=== PATIENT | female | born 1965 | race Caucasian/White ===

== ENCOUNTER 2021-08-31 10:47 | Emergency (ER) | payer OTHER, SELFPAY ==
[2021-08-31 11:07] VITALS: BP 138/88; PULSE 90; RESP 18; TEMP 37.2; O2SAT 97
--- NOTE | 2021-08-31 11:27 | ED.URI ---
HPI - URI/Sore Throat General Chief Complaint: Upper Respiratory Infection Stated Complaint: congestion,sorethroat,watery eyes,headache Time Seen by Provider: 08/31/21 11:18 Source: patient, family and RN notes reviewed Mode of arrival: ambulatory Limitations: no limitations History of Present Illness HPI Narrative: Jodie is a 56-year-old female patient who ambulated into the [facility] with complaint of left-sided facial pain. Patient states the left-sided pain started on and has progressed to both sides of her sinuses. Patient states she is sneezing nonstop. And has sinus congestion. She also states that she has a lot of postnasal drainage. Patient has been taking DayQuil and NyQuil without relief. Related Data Home Medications Medication Instructions Recorded Confirmed lisinopril 10 mg PO DAILY 08/31/21 08/31/21 mirabegron [Myrbetriq] 50 mg PO DAILY 08/31/21 08/31/21 rosuvastatin 10 mg PO DAILY 08/31/21 08/31/21 Allergies Allergy/AdvReac Type Severity Reaction Status Date / Time ciprofloxacin [From Cipro] Allergy Hives Verified 08/31/21 11:16 Sulfa (Sulfonamide Allergy Swelling Verified 08/31/21 11:16 Antibiotics) of Lip/Tongue/Throat Review of Systems Review of Systems: CONSTITUTIONAL: Denies body aches, fever, chills, or sweats. EYES: Denies visual changes, redness, or discharge. ENT: + rhinorrhea,+ congestion, denies sore throat, + otalgia. CARDIOVASCULAR: Denies chest pain, palpitations, or edema. RESPIRATORY: Denies cough or dyspnea. GASTROINTESTINAL: Denies abdominal pain, nausea, vomiting, or diarrhea. GENITOURINARY: Denies dysuria or hematuria. SKIN: Denies rash, itching, or wounds. MUSCULOSKELETAL: Denies back pain, joint pain, or myalgia. NEUROLOGIC: Denies headache, numbness, tingling, or weakness. PSYCH: Denies depression or anxiety. All systems reviewed & are unremarkable except as noted in HPI and below PMFSH Comments At time of signature, I have reviewed and agree with nursing past medical, surgical, social and family history unless otherwise noted. Please see nursing chart for further information. There is no relevant family history pertinent to the presenting complaint Exam Narrative: GENERAL: Well-appearing, well-nourished, and in no acute distress. HEAD: Normocephalic, atraumatic. EYES: EOMI. No redness or drainage. Conjunctivae normal. ENT: Mucous membranes pink and moist. Nasal membranes erythematous with moderate amount of clear rhinorrhea. Bilateral tympanic membranes are dull with moderate amount of fluid no erythema. Posterior pharynx is erythemic with minimal edema and moderate amount of postnasal drainage. Uvula midline. NECK: Normal AROM. Supple. Positive anterior cervical lymphadenopathy. CHEST: No respiratory distress. Clear to auscultation. MUSCULOSKELETAL: No bony tenderness. EXTREMITIES: Normal range of motion. No edema. SKIN: Warm, dry, no rash. Capillary refill normal. Normal skin turgor. NEURO: No focal deficits. Alert and oriented x3. Gait steady. PSYCH: Normal affect. No signs of depression or anxiety. Course Vital Signs Vital signs: Vital Signs Temperature 37.2 C 08/31/21 11:07 Pulse Rate 90 08/31/21 11:07 Respiratory Rate 18 08/31/21 11:07 Blood Pressure 138/88 08/31/21 11:07 Pulse Oximetry 97 08/31/21 11:07 Temperature 37.2 C 08/31/21 11:07 Pulse Rate 90 08/31/21 11:07 Respiratory Rate 18 08/31/21 11:07 Blood Pressure 138/88 08/31/21 11:07 Pulse Oximetry 97 08/31/21 11:07 Reviewed. Pt has been instructed to follow up with her PCP regarding her elevated blood pressure today. MDM - URI/Sore Throat Differential Diagnosis Differential diagnosis: Likely upper respiratory infection, otitis media, viral infection and pharyngitis Medical Records Attestation: I reviewed the patient's medical records. Critical Care Time Critical Care Time Critical Care Time: No Discharge Plan Discharge
== END 2021-08-31 11:37 | disposition home or self-care (01) ==
PROVIDERS: Emergency Provider Nurse Practitioner Family; PCP Physician Assistant
DX: J06.9 Acute upper respiratory infection, unspecified (principal)
CPT/HCPCS: 99203; G0463

== ENCOUNTER → 2022-08-19 15:49 | Outpatient (CLI) | payer OTHER, SELFPAY ==
--- NOTE | ~2022-08-19 | MR_ITS ---
EXAMINATION: MR lumbar spine wo con DATE: 08/19/2022 17:16 INDICATION: Chronic bilateral low back pain. Bilateral sciatica. TECHNIQUE: Magnetic resonance imaging (MRI) of the lumbar spine was performed without intravenous con trast. Sequences included sagittal T2-weighted FSE, sagittal T2-weighted FS FSE, sagittal T1-weighted FSE, and axial T2-weighted FSE. COMPARISON: None FINDINGS: There is 5 degrees levocurvature of lumbar spine. Vertebral body heights are normal. Interv ertebral disc heights are normal. The distal spinal cord signal intensity is normal. The conus medull levi is at L1. There are cysts in the kidneys measuring up to 12 mm on the left. The following disc l evels are specifically discussed: L1-L2: The disc is bulging. There is mild bilateral facet joint osteoarthritis. There is no neural fo raminal stenosis. There is mild central canal stenosis. L2-L3: The disc is bulging. There is mild bilateral facet joint osteoarthritis. There is no neural fo raminal stenosis. There is mild central canal stenosis. L3-L4: The disc is bulging. There is mild bilateral facet joint osteoarthritis. There is mild bilater al neural foraminal stenosis. There is mild central canal stenosis. L4-L5: The disc is bulging and has an annular fissure. There is severe right and mild left facet join t osteoarthritis. There is mild bilateral neural foraminal stenosis. There is mild central canal sten osis. L5-S1: The disc is bulging and has an annular fissure. There is mild bilateral facet joint osteoarthr itis. There is mild bilateral neural foraminal stenosis. There is mild central canal stenosis. IMPRESSION: 1. Mild lumbar spondylosis. Reviewed, dictated and finalized at location A. [employer] IMPRESSION: 1. Mild lumbar spondylosis.
== END ==
PROVIDERS: PCP Physician Assistant; Visit Provider Physician Assistant
DX: M54.42 Lumbago with sciatica, left side (principal); M54.41 Lumbago with sciatica, right side; G89.29 Other chronic pain; M43.06 Spondylolysis, lumbar region
CPT/HCPCS: 72148

== ENCOUNTER → 2022-10-16 14:27 | Outpatient (CLI) | payer OTHER, SELFPAY ==
--- NOTE | ~2022-10-16 | MR_ITS ---
EXAMINATION: MR cervical spine wo con DATE: 10/16/2022 15:16 INDICATION: Neck pain. TECHNIQUE: Magnetic resonance imaging (MRI) of the cervical spine was performed without intravenous c ontrast. COMPARISON: None FINDINGS: There is 8 degrees levocurvature of cervicothoracic spine. Vertebral body heights are elvis l. There is severely decreased disc height at C5-C6 and moderately decreased disc height at C6-C7. Th e spinal cord signal intensity is normal. The following disc levels are specifically discussed: C2-C3: The disc does not extend beyond the endplate margin. There is mild right uncovertebral joint o steoarthritis. There is severe right and moderate left facet joint osteoarthritis. There is mild righ t neural foraminal stenosis. There is mild central canal stenosis. C3-C4: The disc does not extend beyond the endplate margin. There is mild bilateral uncovertebral jasmin nt osteoarthritis. There is severe right and mild left facet joint osteoarthritis. There is mild bila teral neural foraminal stenosis. There is no central canal stenosis. C4-C5: The disc does not extend beyond the endplate margin. There is no uncovertebral joint osteoarth ritis. There is severe bilateral facet joint osteoarthritis. There is mild right neural foraminal gilmar nosis. There is no central canal stenosis. C5-C6: The disc is bulging. There is moderate right and severe left uncovertebral joint osteoarthriti s. There is no facet joint osteoarthritis. There is mild bilateral neural foraminal stenosis. There i s mild central canal stenosis with ventral indentation of the spinal cord. C6-C7: The disc is bulging. There is severe bilateral uncovertebral joint osteoarthritis. There is mi ld left facet joint osteoarthritis. There is mild right neural foraminal stenosis. There is mild cent ral canal stenosis. C7-T1: The disc does not extend beyond the endplate margin. There is no uncovertebral joint osteoarth ritis. There is moderate right and severe left facet joint osteoarthritis. There is mild bilateral ne ural foraminal stenosis. There is no central canal stenosis. IMPRESSION: 1. Severe cervical spondylosis. Reviewed, dictated and finalized at location A. ER MACHINE
--- NOTE | ~2022-10-16 | MR_ITS ---
EXAMINATION: MR thoracic spine wo con DATE: 10/16/2022 15:18 INDICATION: Thoracic back pain. TECHNIQUE: Magnetic resonance imaging (MRI) of the thoracic spine was performed without intravenous c ontrast. COMPARISON: None FINDINGS: There is 5 degrees dextrocurvature of thoracic spine. Vertebral body heights are normal. Th ere is mildly decreased disc height at T5-T6, T6-T7, and T7-T8. The discs do not extend beyond the en dplate margins in thoracic spine. There is multilevel facet joint osteoarthritis, severe at many leve ls. On the right, there is mild neural foraminal stenosis from T1-T2 through T5-T6. On the left, ther e is mild neural foraminal stenosis from T1-T2 through T5-T6. No central canal stenosis. The spinal c ord signal intensity is normal. The conus medullaris is at L1. IMPRESSION: 1. Mild thoracic spondylosis. Reviewed, dictated and finalized at location A. [employer]
== END ==
PROVIDERS: PCP Physician Assistant; Visit Provider Nurse Practitioner Family
DX: M47.894 Other spondylosis, thoracic region (principal); M47.892 Other spondylosis, cervical region
CPT/HCPCS: 72141; 72146